=== PATIENT | male | born 1995 | race Caucasian/White ===

== ENCOUNTER → 2020-12-22 | Day surgery (SDC) | payer OTHER ==
[~2020-12-22] MED LIST: COLACE100 MG PO; HYDROCODON-ACE1 EAC2 PO; IBUPROFEN200 M1 PO; PRILOSEC OTC20 MG PO
== END | disposition home or self-care (01) ==
LOC: OR 07:14
PROVIDERS: Surgery
PROC: 0WQF0ZZ Repair Abdominal Wall, Open Approach (ICD-10-PCS; principal; 2020-12-22 09:30)
DX: K42.9 Umbilical hernia without obstruction or gangrene (principal); K21.9 Gastro-esophageal reflux disease without esophagitis; E66.01 Morbid (severe) obesity due to excess calories; Z68.39 Body mass index [BMI] 39.0-39.9, adult; Z20.822 Contact with and (suspected) exposure to COVID-19; Z79.1 Long term (current) use of non-steroidal anti-inflammatories (NSAID); Z79.899 Other long term (current) drug therapy
CPT/HCPCS: C1713; C1781; J0690; J1100; J1885; J2001; J2250; J2405; J2704; J2710; J3010; J7030; J7120